=== PATIENT | female | born 1980 | race American Indian/Alaskan Native ===

== ENCOUNTER 2017-04-21 09:49 | Outpatient (CLI) | payer BC ==
[2017-04-21] MEDS ORDERED: LACTATED RINGERS 500 ML IV ONE (09:54)
[2017-04-21 11:12] VITALS: BP 118/60
== END 2017-04-21 12:15 | disposition home or self-care (01) ==
LOC: TRG 09:49
PROVIDERS: ATTEND Obstetrics & Gynecology
DX: O09.522 Supervision of elderly multigravida, second trimester (principal); O47.02 False labor before 37 completed weeks of gestation, second trimester; Z3A.26 26 weeks gestation of pregnancy
CPT/HCPCS: 59025; J7120

== ENCOUNTER 2017-07-11 21:57 | Inpatient (IN) | payer BC ==
[2017-07-11] MEDS ORDERED: LACTATED RINGERS 1,000 ML ONE (22:51)
[2017-07-11] MEDS ORDERED: PITOCin/NS 20 UNIT/1000ML DRIP 20,000 MILLIUNITS/1,000 ML BAG IV ONE (22:51)
[2017-07-11] MEDS ORDERED: ePHEDrine SULFATE IV PRN (23:07)
[2017-07-11] MEDS ORDERED: PHENERGAN PO PRN (23:07)
[2017-07-11] MEDS ORDERED: BRETHINE IVP PRN (23:07)
[2017-07-11] MEDS ORDERED: STADOL IV PRN (23:07)
--- NOTE | 2017-07-11 23:07 | History and Physical Report ---
History of Present Illness Date of examination: 07/11/17 Date of admission: 07/11/17 22:38 History of present illness: Patient presents to labor and delivery complaints of abdominal pain contractions and heavy vaginal bleeding. Initial exam by RN revealed her cervix was 9 cm with a bulging of bag. Patient's care complicated by advanced maternal age history of herpes genitalia. Menstrual History Regularity: regular Menses every: 6 days Duration: 28 LMP: 10/20/2016 LMP reliability: definite LMP character: normal test type: urine test Date: 12/02/2016 BC at conception: none Planned ? no EDC Calculations LMP: 07/27/2017 EDC Confirmation: 07/27/2017 Past History : 2 Term Births: 0 Premature Births: 0 Living Children: 0 Para: 0 Mult. Births: 0 Prev : 0 Aborta: 1 Elect. Ab: 1 Spont. 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 of genital herpes: yes Genetic History ADVANCED MATERNAL AGE Congenital Heart Defect: Mom: no Dad: no [place] Disease: Mom: no Dad: no Thalassemia Mom: no Dad: no Neural Tube Defect Mom: no Dad: no Down's Syndrome Mom: no Dad: no Ortega-Sachs Mom: no Dad: no Sickle Cell Disease/Trait Mom: no Dad: no Hemophilia Mom: no Dad: no Muscular Dystrophy Mom: no Dad: no Cystic Fibrosis Mom: no Dad: no [place] Chorea Mom: no Dad: no Mental Retardation Mom: no Dad: no Fragile X Mom: no Dad: no Other Genetic/Chromosomal Disorder Mom: no Dad: no Child w/other defect Mom: no Dad: no Enviromental Exposures Xray Exposure: no Medication, drug, or alcohol use since LMP: no Chemical/Other Exposure: no Exposure to Cat Liter: no Hx of Parvovirus (Fifth Disease): no Current Allergies: * SEASONAL (Critical) Past History Past Medical History: other (See HPI) Past Surgical History: other (See HPI) ALLERGIST/MD History: chlamydia, herpes, other (See HPI) Family/Genetic History: other (See HPI) Social history: other (See HPI) - Obstetrical History Expected Date of Delivery: 07/27/17 Actual Gestation: 37 Week(s) 6 Day(s) : 2 Para: 0 Hx # Term Pregnancies: 0 Number of Pregnancies: 0 Spontaneous Abortions: 0 Induced : 1 Number of Living Children: 0 Medications and Allergies Allergies Allergy/AdvReac Type Severity Reaction Status Date / Time No Known Allergies Allergy Verified 07/11/17 22:12 Home Medications Medication Instructions Recorded Confirmed Last Taken Type Pnv No.95/Ferrous Fum/Folic AC 1 each PO DAILY 04/21/17 04/21/17 04/21/17 07:30 History [ Caplet] Review of Systems All systems: negative - Vital Signs Vital signs: Vital Signs Temp Resp 97.6 F 18 07/11/17 22:37 07/11/17 22:37 Temp Pulse Resp BP Pulse Ox 97.6 F 60 18 122/58 07/11/17 22:37 07/11/17 22:39 07/11/17 22:37 07/11/17 22:39 - Physical Exam Breasts: Positive: deferred Cardiovascular: Regular rate Lungs: Positive: Normal air movement Abdomen: Positive: normal appearance Genitourinary (Female): Positive: normal external genitalia Vulva: both: normal (blood present no HSV lesions seen) Vagina: Positive: normal moisture. Negative: discharge Uterus: Positive: enlarged Anus/Rectum: Positive: normal perianal skin - Obstetrical FHR: category 1 Uterine Contraction Monitor Mode: Palpation Cervical Dilatation: 10 Cervical Effacement Percentage: 100 station: 0 Uterine Contraction Pattern: Regular Results Result Diagrams: 07/11/17 Unknown All other labs normal. Assessment and Plan - Patient Problems (1) Active labor at term Current Visit: Yes Status: Acute Plan to address problem: Admitted to labor and deliver and follow labor protocol. (2) Herpes genitalia Current Visit: Yes Status: Acute Qualifiers: Herpes simplex infection site: unspecified Qualified Code(s): A60.00 - Herpesviral infection of urogenital system, unspecified Plan to address problem: No active lesions on exam (3) Advanced maternal age (AMA) in Current Visit: Yes Status: Acute
[2017-07-11 23:43] LABS: Hematocrit 37.2 % (30.3-42.9); Hemoglobin 12.6 gm/dl (10.1-14.3); Mean Corpuscular HGB Conc 34 % (30-34); Mean Corpuscular Hemoglobin 33 pg (28-32); Mean Corpuscular Volume 98 fl (79-97); Platelet Count 202 K/mm3 (140-440); Red Blood Count 3.82 M/mm3 (3.65-5.03); Red Cell Distribution Width 13.8 % (13.2-15.2); White Blood Count 16.7 K/mm3 (4.5-11.0)
[2017-07-11] MEDS ORDERED: PITOCin/NS 20 UNIT/1000ML DRIP 20 UNITS/1,000 ML BAG IV SCH (23:45)
[2017-07-11] MEDS ORDERED: LACTATED RINGERS 1,000 ML IV SCH (23:45)
[2017-07-12] MEDS ORDERED: XYLOCAINE 2% INFILTRATI ONE
--- NOTE | 2017-07-12 00:39 | Procedure Note ---
OB Delivery Note - Delivery Date of Delivery: 07/11/17 Surgeon: ANNETTE VALLECILLO Estimated blood loss: other (400cc) - Vaginal Delivery position: OA Intrapartum events: abruption Delivery induction: none Delivery augmentation: rupture of membranes Route of delivery: Delivery placenta: spontaneous, other (blood clots the placenta consistent with abruption) Episiotomy: none Delivery laceration: 2nd degree Delivery repair: vicryl Anesthesia: local - Infant A at 1 minute: 8 at 5 minutes: 9 Gender: Male
[2017-07-12] MEDS ORDERED: BENADRYL PO PRN (01:40)
[2017-07-12] MEDS ORDERED: TUCKS PAD TP PRN (01:40)
[2017-07-12] MEDS ORDERED: NORCO 5/325 PO PRN (01:40)
[2017-07-12] MEDS ORDERED: MILK OF MAGNESIA PO PRN (01:40)
[2017-07-12] MEDS ORDERED: DULCOLAX PR PRN (01:40)
[2017-07-12] MEDS ORDERED: TYLENOL PO PRN (01:40)
[2017-07-12] MEDS ORDERED: SODIUM CHLORIDE FLUSH SYRINGE 10 ML IV PRN (01:40)
[2017-07-12] MEDS ORDERED: PHENERGAN PO PRN (01:40)
[2017-07-12] MEDS: MOTRIN PO SCH ×3 (05:36→13:15)
[2017-07-12] MEDS: PRENATAL VITAMIN PO SCH (12:01)
--- NOTE | 2017-07-12 12:21 | Event Note ---
Date: 07/12/17 stable 12 hours post del,
[2017-07-12 14:09] LABS: Hematocrit 29.7 % (30.3-42.9)
[2017-07-13] MEDS: MOTRIN PO SCH ×2 (00:18→05:44)
[2017-07-13] MEDS ORDERED: BOOSTRIX IM ONE (06:00)
--- NOTE | 2017-07-13 08:25 | Progress Note ---
Assessment and Plan - Patient Problems (1) Vaginal delivery Current Visit: Yes Status: Acute Plan to address problem: -routine pp care -d/c home this pm Subjective - Subjective Date of service: 07/13/17 Principal diagnosis: PPD #1 s/p Interval history: Pt doing well and desires d/c home today if infant cleared for d/c. Pt also is asking for help with breast feeding. to see pt today prior to d/c home. Patient reports: appetite normal, voiding normally, pain well controlled [place]fort: doing well Objective - Vital Signs Latest vital signs: Vital Signs Temp Pulse Resp BP BP Pulse Ox 07/13/17 06:30 16 07/13/17 05:44 16 07/13/17 00:18 18 07/12/17 23:35 97.9 F 85 20 105/52 99 07/12/17 16:12 98.4 F 80 18 116/56 99 07/12/17 12:44 97.7 F 78 18 110/44 07/12/17 09:19 97.9 F 18 104/48 07/12/17 09:13 97.9 F 80 18 104/48 Intake and Output 07/12/17 07/13/17 07/13/17 22:59 06:59 14:59 Intake Total 960 Balance 960 Intake: Oral 720 Intake, Free Water 240 Other: Total, Intake Amount 240 # Voids Void 1 - Exam Lungs: Present: Normal air movement Abdomen: Present: normal appearance, soft. Absent: distention, tenderness, guarding Uterus: Present: normal, firm, fundal height below umbilicus. Absent: tenderness - Labs Labs: Abnormal lab results 07/12/17 Range/Units 13:58 Hgb 10.0 L (10.1-14.3) gm/dl Hct 29.7 L D (30.3-42.9) %
--- NOTE | 2017-07-13 08:27 | Discharge Summary ---
Providers - Providers Date of Admission: 07/11/17 22:38 Date of discharge: 07/13/17 (desires d/c home toay) Attending physician: ANNETTE VALLECILLO 07/12/17 01:40 Consult to Livestock Inspector [CONS] Routine Reason For Exam: assistance with , SNS Primary care physician: ANNETTE VALLECILLO Hospitalization Reason for admission: active labor Delivery: Procedure details: see delivery note Laceration: other (see delivery note) Other procedures: none complications: none [place] baby: male Hospital course: Pt s/p . She has had routine pp care and desires d/c home today. Pt will be d /c home today if remains AFVSS Condition at discharge: Good Disposition: DC-01 TO HOME OR SELFCARE - Discharge Diagnoses (1) Vaginal delivery Status: Acute Plan - Discharge Medications Prescriptions: Lidocain2.5%/Prilocai2.5% [Emla] 1 applic TP ONCE #1 tube - Provider Discharge Summary Additional instructions: [] Smoking cessation referral if applicable(refer to patient education folder for contact #) [] Refer to [facility] Booklet Call your doctor immediately for: * Fever > 100.5 * Heavy vaginal bleeding ( >1 pad per hour) * Severe persistent headache * Shortness of breath * Reddened, hot, painful area to leg or breast * Drainage or odor from incision. * Keep incision clean and dry at all times and follow doctor's instructions regarding bathing/showering - Follow up plan Follow up: ANNETTE VALLECILLO MD [Primary Care Provider] - 7 Days
[2017-07-13] MEDS: PRENATAL VITAMIN PO SCH (08:37)
[2017-07-13] MEDS ORDERED: Fluarix Quad 2017-2018(36 MOS+ IM ONE (09:00)
[2017-07-13 14:47] VITALS: BP 127/71
== END 2017-07-13 14:30 | disposition home or self-care (01) | DRG 774 ==
LOC: TRG 21:57 → LD 22:05 → TRG 22:37 → LD 22:38 → OB 07-12 01:39
PROVIDERS: ADMIT Obstetrics & Gynecology; ATTEND Obstetrics & Gynecology
PROC: 0KQM0ZZ Repair Perineum Muscle, Open Approach (ICD-10-PCS; principal; 2017-07-11)
PROC: 10E0XZZ Delivery of Products of Conception, External Approach (ICD-10-PCS; 2017-07-11)
PROC: 3E0234Z Introduction of Serum, Toxoid and Vaccine into Muscle, Percutaneous Approach (ICD-10-PCS; 2017-07-11)
DX: O45.8X3 Other premature separation of placenta, third trimester (principal); O98.52 Other viral diseases complicating childbirth; B00.9 Herpesviral infection, unspecified; Z3A.37 37 weeks gestation of pregnancy; Z37.0 Single live birth; O70.1 Second degree perineal laceration during delivery; Z23 Encounter for immunization; Z82.49 Family history of ischemic heart disease and other diseases of the circulatory system; Z82.3 Family history of stroke
CPT/HCPCS: 36415; 85014; 85018; 85027; 86850; 86900; 86901; 88307; 90471; 90686; 90715; 99211; G0008; G0463; J2590; J7120

== ENCOUNTER 2022-01-24 15:15 | Inpatient (IN) | payer BC ==
[2022-01-24] MEDS ORDERED: miSOPROStol 200 MCG TAB PR PRN (15:40)
[2022-01-24] MEDS ORDERED: ePHEDrine SULFATE 50 MG/1 ML INJ IV PRN (15:40)
[2022-01-24] MEDS ORDERED: CARBOPROST TROMETHAMINE 250 MCG/1 ML INJ IM PRN (15:40)
[2022-01-24] MEDS ORDERED: BUTORPHANOL 2 MG/1 ML INJ IV PRN (15:40)
[2022-01-24] MEDS ORDERED: PROMETHAZINE 25 MG TAB PO PRN (15:40)
[2022-01-24] MEDS ORDERED: MINERAL OIL 30 ML ORAL LIQD PO PRN (15:40)
[2022-01-24] MEDS ORDERED: OXYTOCIN 10 UNIT/1 ML INJ IM PRN (15:40)
[2022-01-24] MEDS ORDERED: ONDANSETRON 4 MG/2 ML INJ IV PRN (15:40)
[2022-01-24] MEDS ORDERED: fentaNYL 100 MCG/2 ML INJ IV PRN (15:40)
[2022-01-24] MEDS ORDERED: TERBUTALINE 1 MG/1 ML INJ SUB-Q PRN (15:40)
[2022-01-24] MEDS ORDERED: ACETAMINOPHEN 325 MG TAB PO PRN (15:40)
[2022-01-24] MEDS ORDERED: METHYLERGONOVINE MALEATE 0.2 MG/ML VIAL IM PRN (15:40)
[2022-01-24] MEDS ORDERED: LIDOCAINE (2%) 20 MG/1 ML VIAL 20 ML MDV INFILTRATI ONE (15:40)
[2022-01-24] MEDS ORDERED: NALOXONE 0.4 MG/1 ML INJ IV PRN (15:40)
[2022-01-24] MEDS ORDERED: LOPERAMIDE 2 MG CAP PO PRN (15:40)
[2022-01-24] MEDS ORDERED: OXYTOCIN DRIP 30 UNITS/500 ML BAG IV SCH (16:00)
--- NOTE | 2022-01-24 16:01 | History and Physical Report ---
History of Present Illness Date of examination: 01/24/22 Date of admission: 01/24/22 15:17 Chief complaint: I'm here for my induction. History of present illness: Pt is a @ 39.4 wks who presents today for an induction of labor per [facility] recommendation. She has been seeing [facility] d/t AMA. Her has otherwise been uncomplicated. Her last BPP at [facility] on 01/17 was 8/8. Last EFW on 01/02 @ 36.6 wks was 6-5 (46%). Of note: HSV noted on her on her past medical history. Pt denied history of HSV at new missed period visit. Labs reviewed. 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 EDC Confirmation: 01/27/2022 Gestational Age: 39.4 weeks on admission Past History : 4 Term Births: 1 Premature Births: 0 Living Children: 1 Para: 1 Mult. Births: 0 Prev : 0 Prev. attempt? 0 Aborta: 2 Elect. Ab: 1 Spont. Ab: 1 Ectopics: 0 # 1 Delivery date: 2006 Delivery type: EAB # 2 Delivery date: 07/11/2017 Weeks Gestation: 37 Delivery type: Vaginal Hours of labor: 10 Anesthesia type: none Delivery location: [facility] Sex: male weight: 6.19 Name: Ascencion # 3 Delivery date: 08/2019 Delivery type: SAB Comments: Medical therapy Past Medical History: Reviewed history from 04/30/2021 and no changes required: Negative Past Medical History Past Surgical History: Reviewed history from 04/30/2021 and no changes required: negative Family History Summary: Reviewed history Last on 09/02/2019 and no changes required:06/10/2021 Other Family Member - Has Family History of Hypertension - Entered On: 12/02/2016 Other Family Member - Has Family History of CVA or Stroke - Entered On: 12/02/2016 General Comments - FH: Paternal grandmother and Aunts with breast cancer Paternal uncle with pancreatic cancer No Family History of Colon Cancer No Family History of Ovarian Cancer No Family History of DVT/PE on OCP Family Hx of HTN Social History: Reviewed history from 04/30/2021 and no changes required: 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 Drug Use: no Past Medical History Anesthesia Complications: negative Anemia: negative Autoimmune Disorder: negative Bleeding Disorder: negative Blood Transfusions: negative Breast Disease: negative Diabetes: negative Heart Disease: negative Hypertension: negative Hepatitis/Liver Disease: negative Kidney Disease/UTI: negative Neurologic/Epilepsy/Migraines: negative Phlebitis/Varicosities: negative Psychiatric: negative Pulmonary Disease/Asthma: negative Thyroid Disease: negative Hospitalizations: negative Surgery (Non-alumni relations coordinator): negative Abnormal PAP: positive [place] Exposure: negative Infertility: negative Uterine Anomaly: negative Uterine Surgery (not C/S): negative Other Gynecologic Problems: negative Social Hx: Patient is Goverment worker Infection History Hx of STD: gonorrhea HIV Risk Eval: no Hepatitis B Risk Eval: low risk Personal hx. of genital herpes: no Rash, Viral, or Febrile illness since last LMP? no Varicella/Chicken Pox Status: Previous Disease TB Risk: no Infection History Comments: theodore Genetic History ADVANCED MATERNAL AGE Congenital Heart Defect: Mom: no Dad: no [place] Disease: Mom: no Dad: no Thalassemia Mom: no Dad: no Neural Tube Defect Mom: no Dad: no Down's Syndrome Mom: no Dad: no Ortega-Sachs Mom: no Dad: no Sickle Cell Disease/Trait Mom: no Dad: no Hemophilia Mom: no Dad: no Muscular Dystrophy Mom: no Dad: no Cystic Fibrosis Mom: no Dad: no [place] Chorea Mom: no Dad: no Mental Retardation Mom: no Dad: no Fragile X Mom: no Dad: no Other Genetic/Chromosomal Disorder Mom: no Dad: no Child w/other defect Mom: no Dad: no Enviromental Exposures Enviromental Exposures Reviewed Xray Exposure: no Medication, drug, or alcohol use since LMP: no Chemical/Other Exposure: no Exposure to Cat Liter: no Hx of Parvovirus (Fifth Disease): no Occupational Exposure to Children: none Comments: Goverment worker Current Allergies (reviewed today): * SEASONAL (Critical) * CORN (Critical) * WHEAT (Critical) * POTATO (Critical) Past History Past Medical History: no pertinent history Past Surgical History: no surgical history Family/Genetic History: hypertension, stroke, cancer (Breast and Pancreatic) Social history: no significant social history - Obstetrical History Expected Date of Delivery: 01/27/22 Actual Gestation: 39 Week(s) 4 Day(s) : 4 Para: 1 Hx # Term Pregnancies: 1 Number of Pregnancies: 0 Spontaneous Abortions: 1 Induced : 1 Number of Living Children: 1 Medications and Allergies Allergies Allergy/AdvReac Type Severity Reaction Status Date / Time corn Allergy Itching Verified 01/24/22 17:19 potato Allergy Itching Verified 01/24/22 17:19 wheat Allergy Itching Verified 01/24/22 17:19 Home Medications Medication Instructions Recorded Confirmed Last Taken Type Pnv No.95/Ferrous Fum/Folic AC 1 each PO DAILY 04/21/17 07/12/17 01/24/22 06:30 History [ Caplet] Aspirin [Adult Aspirin] 81 mg PO DAILY 01/24/22 01/24/22 01/24/22 06:30 History Review of Systems All systems: negative - Physical Exam Cardiovascular: Regular rate Lungs: Positive: Normal air movement Abdomen: Positive: normal appearance, soft Genitourinary (Female): Positive: normal external genitalia, normal perenium, other (No lesions seen. ) Vulva: both: normal Vagina: Positive: normal moisture Uterus: Positive: enlarged (Normal for 39.4 wk gestation.) Extremities: Positive: normal Deep Tendon Reflex Grade: Normal +2 - Obstetrical FHR: category 1 Uterine Contraction Monitor Mode: External Cervical Dilatation: 0.5 Cervical Effacement Percentage: 50 station: -3 Uterine Contraction Pattern: Irregular Uterine Tone Measurement Phase: Resting Uterine Contraction Intensity: Mild Results Result Diagrams: 01/24/22 16:05 All other labs normal. GBS NEGATIVE HBsAg Screen Negative Negative *1 RPR Non Reactive Non Reactive *2 Rubella Antibodies, IgG 1.27 index Immune >0.99 *3 Non-immune <0.90 Equivocal 0.90 - 0.99 Immune >0.99 ABO Grouping O *4 Rh Factor Positive *5 Please note: Prior records for this patient's ABO / Rh type are not available for additional verification. Antibody Screen Negative Negative *6 Tests: (4) HB Solu + Rflx Frac ([id number]) Hemoglobin (Hgb) Solubility Negative Negative *44 Tests: (5) HIV Ag/Ab with Reflex ([id number]) HIV Screen 4th Generation wRfx Non Reactive Non Reactive *45 Tests: (6) Varicella-Zoster V Ab, IgG ([id number]) ! Varicella Zoster IgG 463 index Immune >165 *46 Negative <135 Equivocal 135 - 165 Positive >165 A positive result generally indicates exposure to the pathogen or administration of specific immunoglobulins, but it is not indication of active infection or stage of disease. Tests: (7) HCV Antibody reflex to WINTER ([id number]) HCV Ab 0.3 s/co ratio 0.0-0.9 *47 Tests: (8) Interpretation: ([id number]) ! Interpretation: SPRCS *48 Negative Not infected with HCV, unless recent infection is suspected or other evidence exists to indicate HCV infection. Assessment and Plan A: 41 y.o. @ 39.4 wks, IOL d/t AMA. HSV 2 +. - Patient Problems (1) Advanced maternal age (AMA) in Current Visit: No Status: Acute (2) with 39 completed weeks gestation Current Visit: Yes Status: Acute Plan to address problem: Admit to labor and delivery. Initiate IV. Drawn admission labs. Pain management: IV pain medication and epidural ordered if and when patient desires. Initiate IOL with Cervidil. Monitor status through EFM. (3) Herpes genitalia Current Visit: No Status: Acute Qualifiers: Herpes simplex infection site: unspecified Qualified Code(s): A60.00 - Herpesviral infection of urogenital system, unspecified Plan to address problem: No lesions seen. Will continue to monitor.
[2022-01-24] MEDS ORDERED: DINOPROSTONE 10 MG VAG SUPP VG ONE (18:00)
[2022-01-24 18:03] LABS: Hematocrit 30.6 % (30.3-42.9); Hemoglobin 10.4 gm/dl (10.1-14.3); Mean Corpuscular HGB Conc 34 % (30-34); Mean Corpuscular Volume 93 fl (79-97); Platelet Count 266 K/mm3 (140-440); Red Blood Count 3.31 M/mm3 (3.65-5.03); Red Cell Distribution Width 15.3 % (13.2-15.2)
--- NOTE | 2022-01-24 18:11 | Event Note ---
Date: 01/24/22 (Cervidil placed. ) Cervidil placed. Cervical exam: FT/50/-2, posterior, soft. Cervix behind head on patient's left side.
[2022-01-25] MEDS: LACTATED RINGERS 1,000 ML IV SCH ×3 (00:25→16:10)
--- NOTE | 2022-01-25 04:31 | Event Note ---
Date: 01/25/22 (Cervidil removed) Received a call from the RN that the patient had a 5 minute deceleration. The Cervidil was at that time removed. Strip reviewed for and a 5 minute deceleration noted at that time. Strip has been category 1 since deceleration. No cervical exam noted. Per RN patient is having some irregular contractions but not feeling them. Will start low dose Pitocin at this time.
[2022-01-25] MEDS ORDERED: diphenhydrAMINE 25 MG CAP PO PRN (04:32)
[2022-01-25] MEDS: OXYTOCIN DRIP 30 UNITS/500 ML BAG IV SCH (08:22)
--- NOTE | 2022-01-25 14:34 | Progress Note ---
Assessment and Plan Pt denies all complaints at this time. SVE performed and pt tolerated well. POC d/w pt. All questions addressed. - Patient Problems (1) with 39 completed weeks gestation Current Visit: Yes Status: Acute (2) Advanced maternal age (AMA) in Current Visit: No Status: Acute Plan to address problem: continue pitocin IOL if no change in SVE- pt may have pitocin turned off, dinner and pm care, then cervidil placement overnight for cervical ripening Subjective - Subjective Date of service: 01/25/22 Principal diagnosis: IOL for AMA, IUP at term Patient reports: movement normal, contractions, no new complaints, no loss of fluid, no vaginal bleeding Objective - Vital Signs Vital Signs: Vital Signs - 12hr 01/25/22 01/25/22 01/25/22 02:34 02:39 02:44 Temperature Pulse Rate 71 71 71 Respiratory Rate Blood Pressure Blood Pressure [Right] O2 Sat by Pulse 99 100 98 Oximetry O2 Sat by Pulse Oximetry [ Bilateral Throughout] 01/25/22 01/25/22 01/25/22 02:49 02:54 02:59 Temperature Pulse Rate 76 71 65 Respiratory Rate Blood Pressure Blood Pressure [Right] O2 Sat by Pulse 99 99 99 Oximetry O2 Sat by Pulse Oximetry [ Bilateral Throughout] 01/25/22 01/25/22 01/25/22 03:04 03:09 03:22 Temperature Pulse Rate 71 68 83 Respiratory Rate Blood Pressure Blood Pressure [Right] O2 Sat by Pulse 100 100 99 Oximetry O2 Sat by Pulse Oximetry [ Bilateral Throughout] 01/25/22 01/25/22 01/25/22 03:27 03:32 03:37 Temperature Pulse Rate 68 78 74 Respiratory Rate Blood Pressure Blood Pressure [Right] O2 Sat by Pulse 99 98 99 Oximetry O2 Sat by Pulse Oximetry [ Bilateral Throughout] 01/25/22 01/25/22 01/25/22 03:42 03:47 03:52 Temperature Pulse Rate 86 75 60 Respiratory Rate Blood Pressure Blood Pressure [Right] O2 Sat by Pulse 99 100 99 Oximetry O2 Sat by Pulse Oximetry [ Bilateral Throughout] 01/25/22 01/25/22 01/25/22 03:57 04:02 04:07 Temperature Pulse Rate 67 76 73 Respiratory Rate Blood Pressure Blood Pressure [Right] O2 Sat by Pulse 99 97 97 Oximetry O2 Sat by Pulse Oximetry [ Bilateral Throughout] 01/25/22 01/25/22 01/25/22 04:12 04:17 04:22 Temperature Pulse Rate 89 71 80 Respiratory Rate Blood Pressure Blood Pressure [Right] O2 Sat by Pulse 98 98 97 Oximetry O2 Sat by Pulse Oximetry [ Bilateral Throughout] 01/25/22 01/25/22 01/25/22 04:27 04:36 04:41 Temperature Pulse Rate 77 74 74 Respiratory Rate Blood Pressure Blood Pressure [Right] O2 Sat by Pulse 98 90 100 Oximetry O2 Sat by Pulse Oximetry [ Bilateral Throughout] 01/25/22 01/25/22 01/25/22 04:46 04:51 04:56 Temperature Pulse Rate 71 63 64 Respiratory Rate Blood Pressure Blood Pressure [Right] O2 Sat by Pulse 99 99 99 Oximetry O2 Sat by Pulse Oximetry [ Bilateral Throughout] 01/25/22 01/25/22 01/25/22 05:01 05:06 05:11 Temperature Pulse Rate 71 69 66 Respiratory Rate Blood Pressure Blood Pressure [Right] O2 Sat by Pulse 98 98 99 Oximetry O2 Sat by Pulse Oximetry [ Bilateral Throughout] 01/25/22 01/25/22 01/25/22 05:16 05:21 05:26 Temperature Pulse Rate 76 66 66 Respiratory Rate Blood Pressure Blood Pressure [Right] O2 Sat by Pulse 96 96 97 Oximetry O2 Sat by Pulse Oximetry [ Bilateral Throughout] 01/25/22 01/25/22 01/25/22 05:31 05:36 05:41 Temperature Pulse Rate 85 67 80 Respiratory Rate Blood Pressure Blood Pressure [Right] O2 Sat by Pulse 96 97 97 Oximetry O2 Sat by Pulse Oximetry [ Bilateral Throughout] 01/25/22 01/25/22 01/25/22 05:46 05:51 05:56 Temperature Pulse Rate 70 85 77 Respiratory Rate Blood Pressure Blood Pressure [Right] O2 Sat by Pulse 96 96 96 Oximetry O2 Sat by Pulse Oximetry [ Bilateral Throughout] 01/25/22 01/25/22 01/25/22 06:01 06:06 06:11 Temperature Pulse Rate 74 76 80 Respiratory Rate Blood Pressure Blood Pressure [Right] O2 Sat by Pulse 97 96 99 Oximetry O2 Sat by Pulse Oximetry [ Bilateral Throughout] 01/25/22 01/25/22 01/25/22 06:16 06:21 06:26 Temperature Pulse Rate 69 75 81 Respiratory Rate Blood Pressure Blood Pressure [Right] O2 Sat by Pulse 99 98 98 Oximetry O2 Sat by Pulse Oximetry [ Bilateral Throughout] 01/25/22 01/25/22 01/25/22 06:31 06:36 06:41 Temperature Pulse Rate 69 76 91 H Respiratory Rate Blood Pressure Blood Pressure [Right] O2 Sat by Pulse 100 97 97 Oximetry O2 Sat by Pulse Oximetry [ Bilateral Throughout] 01/25/22 01/25/22 01/25/22 06:46 06:51 06:56 Temperature Pulse Rate 87 78 85 Respiratory Rate Blood Pressure Blood Pressure [Right] O2 Sat by Pulse 98 99 99 Oximetry O2 Sat by Pulse Oximetry [ Bilateral Throughout] 01/25/22 01/25/22 01/25/22 07:01 07:06 07:11 Temperature Pulse Rate 76 83 83 Respiratory Rate Blood Pressure Blood Pressure [Right] O2 Sat by Pulse 99 99 99 Oximetry O2 Sat by Pulse Oximetry [ Bilateral Throughout] 01/25/22 01/25/22 01/25/22 07:16 07:21 07:26 Temperature Pulse Rate 84 71 83 Respiratory Rate Blood Pressure Blood Pressure [Right] O2 Sat by Pulse 99 100 99 Oximetry O2 Sat by Pulse Oximetry [ Bilateral Throughout] 01/25/22 01/25/22 01/25/22 07:31 07:36 07:42 Temperature Pulse Rate 73 78 58 L Respiratory Rate Blood Pressure Blood Pressure [Right] O2 Sat by Pulse 99 99 100 Oximetry O2 Sat by Pulse Oximetry [ Bilateral Throughout] 01/25/22 01/25/22 01/25/22 07:44 07:45 07:46 Temperature 99.1 F Pulse Rate 70 85 Respiratory 16 Rate Blood Pressure 117/63 Blood Pressure 117/63 [Right] O2 Sat by Pulse 99 Oximetry O2 Sat by Pulse 100 Oximetry [ Bilateral Throughout] 01/25/22 01/25/22 01/25/22 07:47 07:52 07:57 Temperature Pulse Rate 73 62 76 Respiratory Rate Blood Pressure Blood Pressure [Right] O2 Sat by Pulse 100 100 98 Oximetry O2 Sat by Pulse Oximetry [ Bilateral Throughout] 01/25/22 01/25/22 01/25/22 08:02 08:07 08:12 Temperature Pulse Rate 84 78 63 Respiratory Rate Blood Pressure Blood Pressure [Right] O2 Sat by Pulse 98 99 99 Oximetry O2 Sat by Pulse Oximetry [ Bilateral Throughout] 01/25/22 01/25/22 01/25/22 08:17 08:19 08:22 Temperature Pulse Rate 78 69 69 Respiratory Rate Blood Pressure 127/70 Blood Pressure [Right] O2 Sat by Pulse 100 99 Oximetry O2 Sat by Pulse Oximetry [ Bilateral Throughout] 01/25/22 01/25/22 01/25/22 08:27 08:32 08:37 Temperature Pulse Rate 82 77 73 Respiratory Rate Blood Pressure Blood Pressure [Right] O2 Sat by Pulse 99 99 98 Oximetry O2 Sat by Pulse Oximetry [ Bilateral Throughout] 01/25/22 01/25/22 01/25/22 08:42 08:47 08:50 Temperature Pulse Rate 79 79 74 Respiratory Rate Blood Pressure 121/72 Blood Pressure [Right] O2 Sat by Pulse 98 99 Oximetry O2 Sat by Pulse Oximetry [ Bilateral Throughout] 01/25/22 01/25/22 01/25/22 08:52 08:57 09:02 Temperature Pulse Rate 69 76 64 Respiratory Rate Blood Pressure Blood Pressure [Right] O2 Sat by Pulse 100 99 99 Oximetry O2 Sat by Pulse Oximetry [ Bilateral Throughout] 01/25/22 01/25/22 01/25/22 09:07 09:12 09:17 Temperature Pulse Rate 69 74 68 Respiratory Rate Blood Pressure Blood Pressure [Right] O2 Sat by Pulse 100 99 100 Oximetry O2 Sat by Pulse Oximetry [ Bilateral Throughout] 01/25/22 01/25/22 01/25/22 09:19 09:22 09:27 Temperature Pulse Rate 71 73 75 Respiratory Rate Blood Pressure 130/82 Blood Pressure [Right] O2 Sat by Pulse 99 99 Oximetry O2 Sat by Pulse Oximetry [ Bilateral Throughout] 01/25/22 01/25/22 01/25/22 09:32 09:37 09:47 Temperature Pulse Rate 68 76 67 Respiratory Rate Blood Pressure Blood Pressure [Right] O2 Sat by Pulse 100 99 100 Oximetry O2 Sat by Pulse Oximetry [ Bilateral Throughout] 01/25/22 01/25/22 01/25/22 09:48 09:52 09:57 Temperature Pulse Rate 65 87 78 Respiratory Rate Blood Pressure 133/76 Blood Pressure [Right] O2 Sat by Pulse 99 98 Oximetry O2 Sat by Pulse Oximetry [ Bilateral Throughout] 01/25/22 01/25/22 01/25/22 10:02 10:07 10:12 Temperature Pulse Rate 86 69 85 Respiratory Rate Blood Pressure Blood Pressure [Right] O2 Sat by Pulse 99 100 99 Oximetry O2 Sat by Pulse Oximetry [ Bilateral Throughout] 01/25/22 01/25/22 01/25/22 10:17 10:18 10:22 Temperature Pulse Rate 70 63 76 Respiratory Rate Blood Pressure 129/71 Blood Pressure [Right] O2 Sat by Pulse 98 99 Oximetry O2 Sat by Pulse Oximetry [ Bilateral Throughout] 01/25/22 01/25/22 01/25/22 10:27 10:32 10:37 Temperature Pulse Rate 62 67 76 Respiratory Rate Blood Pressure Blood Pressure [Right] O2 Sat by Pulse 99 100 100 Oximetry O2 Sat by Pulse Oximetry [ Bilateral Throughout] 01/25/22 01/25/22 01/25/22 10:42 10:47 10:50 Temperature Pulse Rate 67 74 62 Respiratory Rate Blood Pressure 128/73 Blood Pressure [Right] O2 Sat by Pulse 99 100 Oximetry O2 Sat by Pulse Oximetry [ Bilateral Throughout] 01/25/22 01/25/22 01/25/22 10:52 10:57 11:02 Temperature Pulse Rate 63 66 67 Respiratory Rate Blood Pressure Blood Pressure [Right] O2 Sat by Pulse 99 99 97 Oximetry O2 Sat by Pulse Oximetry [ Bilateral Throughout] 01/25/22 01/25/22 01/25/22 11:22 11:27 11:32 Temperature Pulse Rate 81 65 77 Respiratory Rate Blood Pressure Blood Pressure [Right] O2 Sat by Pulse 76 L 100 100 Oximetry O2 Sat by Pulse Oximetry [ Bilateral Throughout] 01/25/22 01/25/22 01/25/22 11:37 11:42 11:47 Temperature Pulse Rate 80 59 L 78 Respiratory Rate Blood Pressure Blood Pressure [Right] O2 Sat by Pulse 98 99 98 Oximetry O2 Sat by Pulse Oximetry [ Bilateral Throughout] 01/25/22 01/25/22 01/25/22 11:48 11:52 11:57 Temperature Pulse Rate 91 H 66 66 Respiratory Rate Blood Pressure 122/80 Blood Pressure [Right] O2 Sat by Pulse 99 99 Oximetry O2 Sat by Pulse Oximetry [ Bilateral Throughout] 01/25/22 01/25/22 01/25/22 12:02 12:07 12:12 Temperature Pulse Rate 68 60 62 Respiratory Rate Blood Pressure Blood Pressure [Right] O2 Sat by Pulse 98 100 100 Oximetry O2 Sat by Pulse Oximetry [ Bilateral Throughout] 01/25/22 01/25/22 01/25/22 12:17 12:20 12:22 Temperature Pulse Rate 64 60 80 Respiratory Rate Blood Pressure 112/59 Blood Pressure [Right] O2 Sat by Pulse 100 100 Oximetry O2 Sat by Pulse Oximetry [ Bilateral Throughout] 01/25/22 01/25/22 01/25/22 12:27 12:32 12:37 Temperature Pulse Rate 73 57 L 62 Respiratory Rate Blood Pressure Blood Pressure [Right] O2 Sat by Pulse 100 100 100 Oximetry O2 Sat by Pulse Oximetry [ Bilateral Throughout] 01/25/22 01/25/22 01/25/22 12:42 12:47 12:49 Temperature Pulse Rate 70 58 L 61 Respiratory Rate Blood Pressure 128/58 Blood Pressure [Right] O2 Sat by Pulse 100 100 89 Oximetry O2 Sat by Pulse Oximetry [ Bilateral Throughout] 01/25/22 01/25/22 01/25/22 12:52 12:57 13:02 Temperature Pulse Rate 65 69 67 Respiratory Rate Blood Pressure Blood Pressure [Right] O2 Sat by Pulse 100 100 100 Oximetry O2 Sat by Pulse Oximetry [ Bilateral Throughout] 01/25/22 01/25/22 01/25/22 13:07 13:13 13:18 Temperature Pulse Rate 62 60 62 Respiratory Rate Blood Pressure Blood Pressure [Right] O2 Sat by Pulse 100 100 100 Oximetry O2 Sat by Pulse Oximetry [ Bilateral Throughout] 01/25/22 01/25/22 01/25/22 13:23 13:28 13:33 Temperature Pulse Rate 63 58 L 62 Respiratory Rate Blood Pressure Blood Pressure [Right] O2 Sat by Pulse 100 99 100 Oximetry O2 Sat by Pulse Oximetry [ Bilateral Throughout] 01/25/22 01/25/22 01/25/22 13:38 13:43 13:48 Temperature Pulse Rate 70 62 62 Respiratory Rate Blood Pressure Blood Pressure [Right] O2 Sat by Pulse 100 100 100 Oximetry O2 Sat by Pulse Oximetry [ Bilateral Throughout] 01/25/22 01/25/22 01/25/22 13:53 13:58 14:03 Temperature Pulse Rate 77 64 71 Respiratory Rate Blood Pressure Blood Pressure [Right] O2 Sat by Pulse 100 100 99 Oximetry O2 Sat by Pulse Oximetry [ Bilateral Throughout] 01/25/22 01/25/22 01/25/22 14:08 14:13 14:18 Temperature Pulse Rate 65 58 L 67 Respiratory Rate Blood Pressure Blood Pressure [Right] O2 Sat by Pulse 100 100 100 Oximetry O2 Sat by Pulse Oximetry [ Bilateral Throughout] 01/25/22 01/25/22 14:23 14:28 Temperature Pulse Rate 67 62 Respiratory Rate Blood Pressure Blood Pressure [Right] O2 Sat by Pulse 100 100 Oximetry O2 Sat by Pulse Oximetry [ Bilateral Throughout] - Exam Breasts: deferred Cardiovascular: Regular rate Lungs: Normal air movement Abdomen: Present: normal appearance, soft. Absent: distention, tenderness, guarding Vulva: both: normal Uterus: Present: normal, other (gravid) FHR: auscultation normal, category 1 Uterine Contraction Monitor Mode: External Cervical Dilatation: 1 Cervical Effacement Percentage: 50 station: -3 Uterine Contraction Pattern: Regular Uterine Tone Measurement Phase: Resting Extremities: normal - Labs Labs: Abnormal Labs 01/24/22 16:05 RBC 3.31 L RDW 15.3 H Laboratory Results - last 24 hr 01/24/22 01/24/22 01/24/22 16:05 16:05 16:05 WBC 8.1 RBC 3.31 L Hgb 10.4 Hct 30.6 MCV 93 MCH 31 MCHC 34 RDW 15.3 H Plt Count 266 Syphilis IgG/IgM Ab Nonreactive SARS-CoV-2 (PCR) Blood Type O POSITIVE Antibody Screen Negative 01/25/22 08:22 WBC RBC Hgb Hct MCV MCH MCHC RDW Plt Count Syphilis IgG/IgM Ab SARS-CoV-2 (PCR) Negative Blood Type Antibody Screen
[2022-01-25] MEDS ORDERED: DINOPROSTONE 10 MG VAG SUPP VG SCH (22:00)
--- NOTE | 2022-01-26 13:27 | Event Note ---
Date: 01/26/22 Informed by JLUIS that patient desires to sign out AMA (against medical advice). Spoke with patient who states she is tired and feels like her body is being forced to do something it is not ready to do. Discussed induction of labor is recommended at 39w0d for patients who are at advanced maternal age, beginning at age 35. Reviewed this recommendation is due to increased risk of stillbirth as we age. Notes she had a baby at 37 years old and was not induced. Reviewed due to her being age 41, the risk of stillbirth remains and IOL is recommended. Discussed FHT tracing currently is ok, but she has had moments of decreased variability and decelerations (Cat 2). Recommend staying in hospital as here we can monitor baby and intervene as necessary. Stressed this cannot be done at home and if something happened it may be too late when she presents to hospital. again stressed the risk of IUFD and recommendation to remain in-house. Patient voiced understanding and all questions answered
[2022-01-26] MEDS: OXYTOCIN DRIP 30 UNITS/500 ML BAG IV SCH (13:34)
[2022-01-26] MEDS: LACTATED RINGERS 1,000 ML IV SCH (13:35)
--- NOTE | 2022-01-26 13:49 | Progress Note ---
Assessment and Plan Pt teary and reports frustration with IOL process. SVE grossly unchanged s/p cervidil. Dr. Menjivar made aware and T's cat 2 strip reviewed with physician. Orders received for continued IOL. T's cat 2 discussed with pt. Serial IOL options with risks and benefits d/w pt. Discussed option to take a break from induction process so pt may eat. Option also discussed for elective delivery. Pt refuses all options and states she wants to go home. High risk of stillbirth discussed and pt advised not to leave against medical advice. Need for IOL d/t AMA risks discussed in length. Questions encouraged and addressed. Dr. Menjivar notified and included in discussion with pt. Total time spent with the patient 30 minutes. Pt verbalizes understanding and agrees to low dose Pitocin at this time. Pt refuses all other IOL options. Pt verbalizes understanding of all risks and reports she may still sign out AMA. - Patient Problems (1) with 39 completed weeks gestation Current Visit: Yes Status: Acute (2) Advanced maternal age (AMA) in Current Visit: No Status: Acute Plan to address problem: continuous monitoring, notify provider with any ssx of distress Subjective - Subjective Date of service: 01/26/22 Principal diagnosis: IOL for AMA, IUP at term Patient reports: movement normal, no new complaints, no loss of fluid, no vaginal bleeding, no contractions Objective - Vital Signs Vital Signs: Vital Signs - 12hr 01/26/22 01/26/22 01/26/22 01:33 01:38 01:43 Temperature Pulse Rate 90 68 84 Blood Pressure Blood Pressure [Left] O2 Sat by Pulse 98 99 99 Oximetry O2 Sat by Pulse Oximetry [ Bilateral Throughout] 01/26/22 01/26/22 01/26/22 01:48 01:53 01:58 Temperature Pulse Rate 70 90 68 Blood Pressure Blood Pressure [Left] O2 Sat by Pulse 99 98 99 Oximetry O2 Sat by Pulse Oximetry [ Bilateral Throughout] 01/26/22 01/26/22 01/26/22 02:03 02:08 02:13 Temperature Pulse Rate 87 72 75 Blood Pressure Blood Pressure [Left] O2 Sat by Pulse 98 97 98 Oximetry O2 Sat by Pulse Oximetry [ Bilateral Throughout] 01/26/22 01/26/22 01/26/22 02:17 02:18 02:23 Temperature Pulse Rate 85 80 96 H Blood Pressure 89/49 Blood Pressure [Left] O2 Sat by Pulse 98 100 Oximetry O2 Sat by Pulse Oximetry [ Bilateral Throughout] 01/26/22 01/26/22 01/26/22 02:28 02:33 02:38 Temperature Pulse Rate 72 76 81 Blood Pressure Blood Pressure [Left] O2 Sat by Pulse 98 98 98 Oximetry O2 Sat by Pulse Oximetry [ Bilateral Throughout] 01/26/22 01/26/22 01/26/22 02:43 02:48 02:53 Temperature Pulse Rate 76 74 79 Blood Pressure Blood Pressure [Left] O2 Sat by Pulse 98 98 98 Oximetry O2 Sat by Pulse Oximetry [ Bilateral Throughout] 01/26/22 01/26/22 01/26/22 02:58 03:03 03:08 Temperature Pulse Rate 77 75 69 Blood Pressure Blood Pressure [Left] O2 Sat by Pulse 98 99 99 Oximetry O2 Sat by Pulse Oximetry [ Bilateral Throughout] 01/26/22 01/26/22 01/26/22 03:13 03:18 03:23 Temperature Pulse Rate 75 78 76 Blood Pressure Blood Pressure [Left] O2 Sat by Pulse 99 100 98 Oximetry O2 Sat by Pulse Oximetry [ Bilateral Throughout] 01/26/22 01/26/22 01/26/22 03:28 03:33 03:38 Temperature Pulse Rate 71 81 83 Blood Pressure Blood Pressure [Left] O2 Sat by Pulse 98 98 99 Oximetry O2 Sat by Pulse Oximetry [ Bilateral Throughout] 01/26/22 01/26/22 01/26/22 03:43 03:48 03:53 Temperature Pulse Rate 76 80 86 Blood Pressure Blood Pressure [Left] O2 Sat by Pulse 98 99 99 Oximetry O2 Sat by Pulse Oximetry [ Bilateral Throughout] 01/26/22 01/26/22 01/26/22 03:58 04:13 04:17 Temperature Pulse Rate 78 80 Blood Pressure 112/57 Blood Pressure [Left] O2 Sat by Pulse 99 100 Oximetry O2 Sat by Pulse Oximetry [ Bilateral Throughout] 01/26/22 01/26/22 01/26/22 04:18 04:23 04:28 Temperature Pulse Rate 83 69 74 Blood Pressure Blood Pressure [Left] O2 Sat by Pulse 98 98 99 Oximetry O2 Sat by Pulse Oximetry [ Bilateral Throughout] 01/26/22 01/26/22 01/26/22 04:33 04:38 04:43 Temperature Pulse Rate 65 78 65 Blood Pressure Blood Pressure [Left] O2 Sat by Pulse 99 100 98 Oximetry O2 Sat by Pulse Oximetry [ Bilateral Throughout] 01/26/22 01/26/22 01/26/22 04:48 04:53 04:58 Temperature Pulse Rate 66 67 64 Blood Pressure Blood Pressure [Left] O2 Sat by Pulse 100 100 99 Oximetry O2 Sat by Pulse Oximetry [ Bilateral Throughout] 01/26/22 01/26/22 01/26/22 05:03 05:08 05:13 Temperature Pulse Rate 74 73 71 Blood Pressure Blood Pressure [Left] O2 Sat by Pulse 99 99 98 Oximetry O2 Sat by Pulse Oximetry [ Bilateral Throughout] 01/26/22 01/26/22 01/26/22 05:17 05:18 05:23 Temperature Pulse Rate 73 68 72 Blood Pressure 113/56 Blood Pressure [Left] O2 Sat by Pulse 98 98 Oximetry O2 Sat by Pulse Oximetry [ Bilateral Throughout] 01/26/22 01/26/22 01/26/22 05:28 05:33 05:38 Temperature Pulse Rate 78 67 75 Blood Pressure Blood Pressure [Left] O2 Sat by Pulse 98 98 97 Oximetry O2 Sat by Pulse Oximetry [ Bilateral Throughout] 01/26/22 01/26/22 01/26/22 05:43 05:48 05:53 Temperature Pulse Rate 78 67 70 Blood Pressure Blood Pressure [Left] O2 Sat by Pulse 96 97 97 Oximetry O2 Sat by Pulse Oximetry [ Bilateral Throughout] 01/26/22 01/26/22 01/26/22 05:58 06:03 06:08 Temperature Pulse Rate 81 77 73 Blood Pressure Blood Pressure [Left] O2 Sat by Pulse 96 97 97 Oximetry O2 Sat by Pulse Oximetry [ Bilateral Throughout] 01/26/22 01/26/22 01/26/22 06:13 06:18 06:23 Temperature Pulse Rate 75 68 70 Blood Pressure 110/55 Blood Pressure [Left] O2 Sat by Pulse 96 97 97 Oximetry O2 Sat by Pulse Oximetry [ Bilateral Throughout] 01/26/22 01/26/22 01/26/22 06:28 06:33 06:38 Temperature Pulse Rate 65 75 68 Blood Pressure Blood Pressure [Left] O2 Sat by Pulse 95 97 97 Oximetry O2 Sat by Pulse Oximetry [ Bilateral Throughout] 01/26/22 01/26/22 01/26/22 06:43 06:48 06:53 Temperature Pulse Rate 67 66 72 Blood Pressure Blood Pressure [Left] O2 Sat by Pulse 97 99 98 Oximetry O2 Sat by Pulse Oximetry [ Bilateral Throughout] 01/26/22 01/26/22 01/26/22 06:58 07:03 07:08 Temperature Pulse Rate 76 71 69 Blood Pressure Blood Pressure [Left] O2 Sat by Pulse 97 99 99 Oximetry O2 Sat by Pulse Oximetry [ Bilateral Throughout] 01/26/22 01/26/22 01/26/22 07:13 07:17 07:18 Temperature Pulse Rate 66 63 67 Blood Pressure 101/52 Blood Pressure [Left] O2 Sat by Pulse 98 98 Oximetry O2 Sat by Pulse Oximetry [ Bilateral Throughout] 01/26/22 01/26/22 01/26/22 07:23 07:30 07:35 Temperature Pulse Rate 66 71 65 Blood Pressure Blood Pressure [Left] O2 Sat by Pulse 99 100 98 Oximetry O2 Sat by Pulse 100 Oximetry [ Bilateral Throughout] 01/26/22 01/26/22 01/26/22 07:37 07:40 07:45 Temperature 98.3 F Pulse Rate 61 62 81 Blood Pressure 103/56 Blood Pressure 103/56 [Left] O2 Sat by Pulse 100 100 99 Oximetry O2 Sat by Pulse Oximetry [ Bilateral Throughout] 01/26/22 01/26/22 01/26/22 07:50 07:55 08:00 Temperature Pulse Rate 63 64 61 Blood Pressure Blood Pressure [Left] O2 Sat by Pulse 99 99 100 Oximetry O2 Sat by Pulse Oximetry [ Bilateral Throughout] 01/26/22 01/26/22 01/26/22 08:05 08:10 08:15 Temperature Pulse Rate 57 L 59 L 70 Blood Pressure Blood Pressure [Left] O2 Sat by Pulse 100 100 100 Oximetry O2 Sat by Pulse Oximetry [ Bilateral Throughout] 01/26/22 01/26/22 01/26/22 08:17 08:20 08:25 Temperature Pulse Rate 77 62 54 L Blood Pressure 110/70 Blood Pressure [Left] O2 Sat by Pulse 100 100 Oximetry O2 Sat by Pulse Oximetry [ Bilateral Throughout] 01/26/22 01/26/22 01/26/22 08:30 08:35 08:40 Temperature Pulse Rate 61 62 54 L Blood Pressure Blood Pressure [Left] O2 Sat by Pulse 100 100 100 Oximetry O2 Sat by Pulse Oximetry [ Bilateral Throughout] 01/26/22 01/26/22 01/26/22 08:45 08:50 08:55 Temperature Pulse Rate 63 71 73 Blood Pressure Blood Pressure [Left] O2 Sat by Pulse 100 100 100 Oximetry O2 Sat by Pulse Oximetry [ Bilateral Throughout] 01/26/22 01/26/22 01/26/22 09:00 09:05 09:10 Temperature Pulse Rate 61 62 72 Blood Pressure Blood Pressure [Left] O2 Sat by Pulse 100 100 100 Oximetry O2 Sat by Pulse Oximetry [ Bilateral Throughout] 01/26/22 01/26/22 01/26/22 09:15 09:17 09:20 Temperature Pulse Rate 60 76 62 Blood Pressure 65/37 Blood Pressure [Left] O2 Sat by Pulse 100 100 Oximetry O2 Sat by Pulse Oximetry [ Bilateral Throughout] 01/26/22 01/26/22 01/26/22 09:42 09:47 09:52 Temperature Pulse Rate 55 L 55 L 75 Blood Pressure Blood Pressure [Left] O2 Sat by Pulse 98 100 99 Oximetry O2 Sat by Pulse Oximetry [ Bilateral Throughout] 01/26/22 01/26/22 01/26/22 09:57 10:02 10:07 Temperature Pulse Rate 60 67 67 Blood Pressure Blood Pressure [Left] O2 Sat by Pulse 98 98 99 Oximetry O2 Sat by Pulse Oximetry [ Bilateral Throughout] 01/26/22 01/26/22 01/26/22 10:08 10:12 10:17 Temperature Pulse Rate 57 L 63 70 Blood Pressure 106/58 Blood Pressure [Left] O2 Sat by Pulse 100 98 Oximetry O2 Sat by Pulse Oximetry [ Bilateral Throughout] 01/26/22 01/26/22 01/26/22 10:18 10:22 10:27 Temperature Pulse Rate 74 71 73 Blood Pressure 114/63 Blood Pressure [Left] O2 Sat by Pulse 98 99 Oximetry O2 Sat by Pulse Oximetry [ Bilateral Throughout] 01/26/22 01/26/22 01/26/22 10:32 10:37 10:42 Temperature Pulse Rate 78 76 61 Blood Pressure Blood Pressure [Left] O2 Sat by Pulse 98 99 98 Oximetry O2 Sat by Pulse Oximetry [ Bilateral Throughout] 01/26/22 01/26/22 01/26/22 10:47 10:52 10:57 Temperature Pulse Rate 70 65 65 Blood Pressure Blood Pressure [Left] O2 Sat by Pulse 98 99 100 Oximetry O2 Sat by Pulse Oximetry [ Bilateral Throughout] 01/26/22 01/26/22 01/26/22 11:02 11:09 11:14 Temperature Pulse Rate 67 64 84 Blood Pressure Blood Pressure [Left] O2 Sat by Pulse 100 96 100 Oximetry O2 Sat by Pulse Oximetry [ Bilateral Throughout] 01/26/22 01/26/22 01/26/22 11:17 11:19 11:27 Temperature Pulse Rate 74 56 L 92 H Blood Pressure 134/63 Blood Pressure [Left] O2 Sat by Pulse 99 94 Oximetry O2 Sat by Pulse Oximetry [ Bilateral Throughout] 01/26/22 01/26/22 01/26/22 11:32 11:37 11:42 Temperature Pulse Rate 73 71 71 Blood Pressure Blood Pressure [Left] O2 Sat by Pulse 97 98 98 Oximetry O2 Sat by Pulse Oximetry [ Bilateral Throughout] 01/26/22 01/26/22 01/26/22 11:47 11:52 11:57 Temperature Pulse Rate 68 76 71 Blood Pressure Blood Pressure [Left] O2 Sat by Pulse 99 100 99 Oximetry O2 Sat by Pulse Oximetry [ Bilateral Throughout] 01/26/22 01/26/22 01/26/22 12:02 12:07 12:12 Temperature Pulse Rate 73 79 68 Blood Pressure Blood Pressure [Left] O2 Sat by Pulse 100 99 100 Oximetry O2 Sat by Pulse Oximetry [ Bilateral Throughout] 01/26/22 01/26/22 01/26/22 12:18 12:23 12:25 Temperature Pulse Rate 63 69 74 Blood Pressure 122/69 Blood Pressure [Left] O2 Sat by Pulse 99 99 91 Oximetry O2 Sat by Pulse Oximetry [ Bilateral Throughout] 01/26/22 01/26/22 01/26/22 12:28 12:33 12:38 Temperature Pulse Rate 73 69 65 Blood Pressure Blood Pressure [Left] O2 Sat by Pulse 99 99 97 Oximetry O2 Sat by Pulse Oximetry [ Bilateral Throughout] 01/26/22 01/26/22 12:43 12:48 Temperature Pulse Rate 75 70 Blood Pressure Blood Pressure [Left] O2 Sat by Pulse 100 100 Oximetry O2 Sat by Pulse Oximetry [ Bilateral Throughout] - Exam Breasts: deferred Cardiovascular: Regular rate Lungs: Normal air movement Abdomen: Present: normal appearance, soft. Absent: distention, tenderness, guar ding Vulva: both: normal Uterus: Present: normal, other (gravid at term) FHR: category 2 Uterine Contraction Monitor Mode: External Cervical Dilatation: 1.5 Cervical Effacement Percentage: 50 station: -4 Uterine Contraction Pattern: Irregular Uterine Tone Measurement Phase: Resting Extremities: normal - Labs Labs: Abnormal Labs 01/24/22 16:05 RBC 3.31 L RDW 15.3 H
[2022-01-27] MEDS: LACTATED RINGERS 1,000 ML IV SCH (00:03)
[2022-01-27] MEDS ORDERED: LIDOCAINE (2%) 20 MG/1 ML VIAL 20 ML MDV INFILTRATI ONE (00:38)
--- NOTE | 2022-01-27 01:38 | Procedure Note ---
OB Delivery Note - Delivery Date of Delivery: 01/27/22 Product Support Engineer: XIMENA CLAYTON Estimated blood loss: <100cc - Vaginal Delivery presentation: vertex Delivery position: OA Intrapartum events: mult.variable deceleratio Delivery induction: cervidil Delivery augmentation: pitocin Delivery monitor: external FHT, external uterine Route of delivery: Delivery placenta: spontaneous Delivery cord: 3 umbilical vessels Episiotomy: none Delivery laceration: none Anesthesia: none Delivery comments: Viable male born over intact perineum; bulb suctioned, placed on mother's abdomen crying and vigorous. 3VC clamped x2 after 2 mins delayed cord clamping, cut by FOB. Placenta delivered spontaneously and intact, sent to pathology for AMA. IV infiltrated. Pitocin IM d/w pt and administered by Primary RN. Perineum explored, hemostatic. No lacerations noted to repair. FF below U with scant lochia. Mother and baby left LDR stable. Dr. Menjivar made aware. - A at 1 minute: 8 at 5 minutes: 9 Infant Gender: Male (3000g)
[2022-01-27] MEDS ORDERED: WITCH HAZEL/ GLYCERIN PAD TP PRN (03:22)
[2022-01-27] MEDS ORDERED: HYDROcodone/ACETAMINOPHEN 5-325 MG TAB PO PRN (03:22)
[2022-01-27] MEDS ORDERED: ONDANSETRON 4 MG/2 ML INJ IV PRN (03:22)
[2022-01-27] MEDS ORDERED: BENZOCAINE/MENTHOL 20/0.5% TOP SPRAY 56 GM TP PRN (03:22)
[2022-01-27] MEDS ORDERED: PROMETHAZINE 25 MG RECT SUPP PR PRN (03:22)
[2022-01-27] MEDS ORDERED: ACETAMINOPHEN 325 MG TAB PO PRN (03:22)
[2022-01-27] MEDS ORDERED: PROMETHAZINE 25 MG TAB PO PRN (03:22)
[2022-01-27] MEDS ORDERED: LANOLIN/ZINC/DIMETHICONE (LANSINOH) 7 GM TP PRN (03:22)
[2022-01-27] MEDS: IBUPROFEN 800 MG TAB PO SCH ×4 (03:22→18:12)
[2022-01-27] MEDS ORDERED: HYDROCORTISONE 25 MG RECTAL SUPP PR PRN (03:22)
[2022-01-27] MEDS ORDERED: diphenhydrAMINE 25 MG CAP PO PRN (03:22)
[2022-01-27] MEDS ORDERED: MAGNESIUM HYDROXIDE (MOM) ORAL LIQD UDC PO PRN (03:22)
--- NOTE | 2022-01-27 07:35 | Progress Note ---
Assessment and Plan A: 41 y.o. s/p , ~ 6 hours . - Patient Problems (1) Vaginal delivery Current Visit: No Status: Acute Plan to address problem: Continue with care. Anticipate discharge home on 01/28. Subjective - Subjective Date of service: 01/27/22 Principal diagnosis: s/p Interval history: Pt doing well. Has no needs at this time. Discussed plan of care. Discharge home on 01/28 if progress normal. Patient reports: appetite normal, voiding normally, pain well controlled, ambulating normally : doing well Objective - Vital Signs Latest vital signs: Vital Signs Temp Pulse Resp BP BP Pulse Ox Pulse Ox 01/27/22 07:01 18 01/27/22 06:45 20 01/27/22 03:22 18 01/27/22 03:05 98.7 F 61 18 121/45 99 100 01/27/22 02:32 79 94 01/27/22 02:31 79 97 01/27/22 02:30 78 139/75 01/27/22 02:26 83 97 01/27/22 02:22 65 92 01/27/22 02:21 65 100 01/27/22 02:16 54 L 100 01/27/22 02:15 50 L 133/62 01/27/22 02:11 58 L 100 01/27/22 02:06 65 98 01/27/22 02:01 71 100 01/27/22 01:56 75 96 01/27/22 01:54 70 92 01/27/22 01:51 59 L 92 01/27/22 01:48 76 92 01/27/22 01:46 63 100 01/27/22 01:45 68 118/58 01/27/22 01:41 71 95 01/27/22 01:40 78 93 01/27/22 01:36 78 98 01/27/22 01:35 85 91 01/27/22 01:31 72 92 01/27/22 01:30 98.4 F 01/27/22 01:29 81 91 01/27/22 01:26 61 99 01/27/22 01:21 77 92 01/27/22 01:20 68 138/58 01/27/22 01:18 78 97 01/27/22 01:13 55 L 88 01/27/22 01:09 61 89 01/27/22 01:08 56 L 100 01/27/22 01:03 86 97 01/27/22 00:58 71 100 01/27/22 00:53 80 97 01/27/22 00:49 68 90 01/27/22 00:48 60 100 01/27/22 00:43 56 L 100 01/27/22 00:38 74 89 01/27/22 00:36 78 92 01/27/22 00:33 74 97 01/27/22 00:28 58 L 100 01/27/22 00:26 74 89 01/27/22 00:23 59 L 99 01/27/22 00:19 75 87 01/27/22 00:18 70 99 01/27/22 00:13 67 81 L 01/27/22 00:08 57 L 89 01/27/22 00:02 64 80 L 01/27/22 00:00 98.2 F 01/26/22 23:58 68 94 01/26/22 23:57 63 98 01/26/22 23:52 53 L 79 L 01/26/22 23:51 59 L 94 01/26/22 23:47 58 L 93 01/26/22 23:46 59 L 94 01/26/22 23:42 58 L 96 01/26/22 23:38 63 94 01/26/22 23:37 67 92 01/26/22 23:33 63 20 93 01/26/22 23:32 64 97 01/26/22 23:27 60 94 01/26/22 23:15 64 98 01/26/22 23:10 70 100 01/26/22 23:05 54 L 100 01/26/22 23:01 78 86 01/26/22 23:00 63 90 01/26/22 22:55 75 90 01/26/22 22:38 72 91 01/26/22 22:37 65 99 01/26/22 22:32 76 95 01/26/22 22:27 56 L 96 01/26/22 22:21 69 97 01/26/22 22:18 57 L 113/57 01/26/22 22:16 75 98 01/26/22 22:11 64 100 01/26/22 22:06 63 100 01/26/22 22:01 79 96 06/12/22 21:56 56 L 97 01/26/22 21:51 69 97 01/26/22 21:47 62 92 01/26/22 21:46 66 98 01/26/22 21:38 84 95 01/26/22 21:37 70 85 01/26/22 21:33 65 97 01/26/22 21:28 82 95 01/26/22 21:23 79 89 01/26/22 21:18 59 L 97 01/26/22 21:17 66 124/58 01/26/22 21:16 73 86 01/26/22 21:13 83 98 01/26/22 21:08 68 95 01/26/22 21:03 70 95 01/26/22 21:01 81 85 01/26/22 20:58 70 96 01/26/22 20:54 95 H 84 01/26/22 20:53 73 95 01/26/22 20:48 75 89 01/26/22 20:31 79 96 01/26/22 20:29 84 94 01/26/22 20:26 75 96 01/26/22 20:21 98 H 85 01/26/22 20:16 73 97 01/26/22 20:11 81 98 01/26/22 20:10 82 93 01/26/22 20:06 77 97 01/26/22 20:01 70 98 01/26/22 19:56 83 91 01/26/22 19:51 92 H 100 01/26/22 19:46 86 87 01/26/22 19:37 82 87 01/26/22 19:36 87 98 01/26/22 19:31 84 98 01/26/22 19:30 91 H 91 01/26/22 19:26 82 98 01/26/22 19:24 89 90 01/26/22 19:21 76 99 01/26/22 19:19 76 92 01/26/22 19:16 64 98 01/26/22 19:15 97.2 F L 88 115/57 95 01/26/22 19:12 88 86 01/26/22 19:11 85 98 01/26/22 19:06 90 98 01/26/22 19:05 87 93 01/26/22 19:01 88 85 01/26/22 18:57 88 91 01/26/22 18:56 79 96 01/26/22 18:51 81 97 01/26/22 18:43 58 L 98 01/26/22 18:38 64 99 01/26/22 18:33 60 99 01/26/22 18:28 78 85 01/26/22 18:19 87 59 L 01/26/22 18:14 63 96 01/26/22 18:12 87 94 01/26/22 18:09 70 97 01/26/22 18:07 85 93 01/26/22 18:04 70 99 01/26/22 18:02 74 89 01/26/22 17:59 64 98 01/26/22 17:56 74 93 01/26/22 17:54 73 100 01/26/22 17:49 62 98 01/26/22 17:44 68 96 01/26/22 17:40 74 91 01/26/22 17:39 71 100 01/26/22 17:35 62 94 01/26/22 17:34 69 100 01/26/22 17:30 86 94 01/26/22 17:29 97 H 98 01/26/22 17:24 61 89 01/26/22 17:19 62 90 01/26/22 17:09 98 H 92 01/26/22 17:04 73 98 01/26/22 16:59 64 99 01/26/22 16:54 62 100 01/26/22 16:52 74 94 01/26/22 16:49 63 98 01/26/22 16:47 68 94 01/26/22 16:44 56 L 99 01/26/22 16:39 63 98 01/26/22 16:34 60 98 01/26/22 16:29 58 L 98 01/26/22 16:24 58 L 99 01/26/22 16:20 57 L 136/64 01/26/22 16:19 65 97 01/26/22 16:14 59 L 97 01/26/22 16:09 53 L 98 01/26/22 16:04 66 97 01/26/22 15:59 62 99 01/26/22 15:54 69 100 01/26/22 15:49 56 L 100 01/26/22 15:43 78 98 01/26/22 15:39 95 H 92 01/26/22 15:38 95 H 96 01/26/22 15:34 77 92 01/26/22 15:33 83 97 01/26/22 15:28 70 96 01/26/22 15:23 86 97 01/26/22 15:20 84 92 01/26/22 15:18 75 96 01/26/22 15:13 77 95 01/26/22 15:08 77 97 01/26/22 15:04 81 94 01/26/22 15:03 83 97 01/26/22 14:58 79 92 01/26/22 14:52 95 H 97 01/26/22 14:47 76 97 01/26/22 14:42 74 98 01/26/22 14:37 76 97 01/26/22 14:32 80 97 01/26/22 14:27 78 97 01/26/22 14:22 67 97 01/26/22 14:17 79 152/69 97 01/26/22 14:12 62 98 01/26/22 14:07 82 97 01/26/22 14:02 62 99 01/26/22 13:57 83 99 01/26/22 13:52 56 L 99 01/26/22 13:47 57 L 100 01/26/22 12:48 70 100 01/26/22 12:43 75 100 01/26/22 12:38 65 97 01/26/22 12:33 69 99 01/26/22 12:28 73 99 01/26/22 12:25 74 91 01/26/22 12:23 69 99 01/26/22 12:18 63 122/69 99 01/26/22 12:12 68 100 01/26/22 12:07 79 99 01/26/22 12:02 73 100 01/26/22 11:57 71 99 01/26/22 11:52 76 100 01/26/22 11:47 68 99 01/26/22 11:42 71 98 01/26/22 11:37 71 98 01/26/22 11:32 73 97 01/26/22 11:27 92 H 94 01/26/22 11:19 56 L 99 01/26/22 11:17 74 134/63 01/26/22 11:14 84 100 01/26/22 11:09 64 96 01/26/22 11:02 67 100 01/26/22 10:57 65 100 01/26/22 10:52 65 99 01/26/22 10:47 70 98 01/26/22 10:42 61 98 01/26/22 10:37 76 99 01/26/22 10:32 78 98 01/26/22 10:27 73 99 01/26/22 10:22 71 98 01/26/22 10:18 74 114/63 01/26/22 10:17 70 98 01/26/22 10:12 63 100 01/26/22 10:08 57 L 106/58 01/26/22 10:07 67 99 01/26/22 10:02 67 98 01/26/22 09:57 60 98 01/26/22 09:52 75 99 01/26/22 09:47 55 L 100 01/26/22 09:42 55 L 98 01/26/22 09:20 62 100 01/26/22 09:17 76 65/37 01/26/22 09:15 60 100 01/26/22 09:10 72 100 01/26/22 09:05 62 100 01/26/22 09:00 61 100 01/26/22 08:55 73 100 01/26/22 08:50 71 100 01/26/22 08:45 63 100 01/26/22 08:40 54 L 100 01/26/22 08:35 62 100 01/26/22 08:30 61 100 01/26/22 08:25 54 L 100 01/26/22 08:20 62 100 01/26/22 08:17 77 110/70 01/26/22 08:15 70 100 01/26/22 08:10 59 L 100 01/26/22 08:05 57 L 100 01/26/22 08:00 61 100 01/26/22 07:55 64 99 01/26/22 07:50 63 99 01/26/22 07:45 81 99 01/26/22 07:40 62 100 01/26/22 07:37 98.3 F 61 103/56 103/56 100 01/26/22 07:35 65 98 100 Intake and Output 01/26/22 01/27/22 01/27/22 22:59 06:59 14:59 Intake Total 1002.267 595.183 Output Total 1750 Balance 1002.267 -1154.817 Intake: IV 1002.267 235.183 Lactated Ringers 1,000 ml 1000 235.183 @ 125 mls/hr IV DIRECT MICKEY Rx#:[id number] PITOCin/NS 30 UNIT/500ML 2.267 30 units In 500 ml @ 1 mls/hr IV TITR MICKEY Rx#: [id number] Oral 240 Intake, Free Water 120 Output: Urine 1750 Void 1750 Other: Total, Intake Amount 240 Total, Output Amount 600 # Voids Void 1 Estimated Blood Loss 50 - Exam Breasts: Present: deferred Cardiovascular: Present: Regular rate Lungs: Present: Normal air movement Abdomen: Present: normal appearance, soft Vulva: both: normal Uterus: Present: normal, firm, other (Light lochia noted. ) Extremities: Present: normal
[2022-01-27] MEDS: DOCUSATE SODIUM 100 MG CAP PO SCH ×2 (10:09→22:00)
[2022-01-27] MEDS: FERROUS SULFATE 325 MG TAB PO SCH ×2 (10:09→22:00)
[2022-01-27] MEDS: PRENATAL VIT27-FE FUMARATE-FOLIC ACID VIT TAB PO SCH (10:09)
[2022-01-27 14:16] LABS: Hematocrit 29.6 % (30.3-42.9); Hemoglobin 9.9 gm/dl (10.1-14.3)
[2022-01-27] MEDS: SENNOSIDES/DOCUSATE SODIUM 8.6/50 MG TAB PO SCH (22:00)
[2022-01-28] MEDS: IBUPROFEN 800 MG TAB PO SCH ×4 (00:30→18:08)
[2022-01-28] MEDS ORDERED: TETANUS,DIPH,PERTUSS(ACELL) VACCINE 0.5 ML SYRINGE IM ONE (06:00)
--- NOTE | 2022-01-28 07:38 | Discharge Summary ---
Providers - Providers Date of Admission: 01/24/22 15:40 Date of discharge: 01/28/22 Attending physician: ANNETTE VALLECILLO 01/27/22 03:22 Consult to Electric Welder Helper [CONS] Routine Reason For Exam: assistance with , SNS Primary care physician: ANNETTE VALLECILLO Hospitalization Reason for admission: induction of labor Delivery: Episiotomy: none Laceration: none Other procedures: none complications: none Discharge diagnosis: IUP at term delivered [place] baby: male Pertinent studies: Pt will be rooming in with after discharge. Baby is under the bili lights. Hospital course: S: Pt doing well. Ambulating, voiding, and passing flatus okay. O: VSS. H/H 9.9/29.6, asymptomatic anemia of delivery. Fundus firm, minimal bleeding noted. A: 41 y.o. s/p . P: Discharge home with instructions. Pt to schedule son's circumcision in the office in 1 week. Pt to schedule her visit in the office in 1 week. Condition at discharge: Good Disposition: 01 HOME / SELF CARE / HOMELESS - Discharge Diagnoses (1) Vaginal delivery Status: Acute Plan - Discharge Medications Prescriptions: Docusate Sodium [Colace] 100 mg PO BID PRN #60 capsule PRN Reason: Constipation Lidocain2.5%/Prilocai2.5% [Emla] 1 applic TP ONCE #1 tube Ibuprofen [Motrin] 800 mg PO Q8HR PRN #20 tablet PRN Reason: Pain, Moderate (4-6) - Provider Discharge Summary Activity: routine, no sex for 6 weeks, no heavy lifting 4 weeks, no strenuous exercise Diet: routine Instructions: routine Additional instructions: [] Smoking cessation referral if applicable(refer to patient education folder for contact #) [] Refer to [facility]'s [facility] Booklet Call your doctor immediately for: * Fever > 100.5 * Heavy vaginal bleeding ( >1 pad per hour) * Severe persistent headache * Shortness of breath * Reddened, hot, painful area to leg or breast - Follow up plan Follow up: ANNETTE VALLECILLO MD [Primary Care Provider] - 7 Days (- Congratulations on the of your baby boy! - Please schedule his circumcision appointment in the office in 1 week. - You have been given a prescription of EMLA cream for your son's circumcision. Do not use this cream at home, but bring it with you to your son's circumcision appointment. - Please schedule your visit in the office in 1 week. - Should you have any questions or concerns after discharge, please do not hesitate to call the office at [phone]. )
[2022-01-28] MEDS: PRENATAL VIT27-FE FUMARATE-FOLIC ACID VIT TAB PO SCH (10:21)
[2022-01-28] MEDS: FERROUS SULFATE 325 MG TAB PO SCH ×2 (10:21→21:50)
[2022-01-28] MEDS: DOCUSATE SODIUM 100 MG CAP PO SCH ×2 (10:21→21:50)
[2022-01-29] MEDS: IBUPROFEN 800 MG TAB PO SCH ×2 (00:09→06:41)
[2022-01-29 08:34] VITALS: BP 132/70
[2022-01-29] MEDS: PRENATAL VIT27-FE FUMARATE-FOLIC ACID VIT TAB PO SCH (09:07)
[2022-01-29] MEDS: DOCUSATE SODIUM 100 MG CAP PO SCH (09:07)
[2022-01-29] MEDS: FERROUS SULFATE 325 MG TAB PO SCH (09:07)
[2022-01-29] MEDS: SENNOSIDES/DOCUSATE SODIUM 8.6/50 MG TAB PO SCH (09:08)
== END 2022-01-29 10:10 | disposition home or self-care (01) | DRG 806 ==
LOC: TRG 15:15 → LD 15:16 → TRG 15:17 → UNDOADMIN 15:17 → LD 15:40 → OB 01-27 02:56
PROVIDERS: ADMIT Obstetrics & Gynecology; ATTEND Obstetrics & Gynecology
PROC: 10E0XZZ Delivery of Products of Conception, External Approach (ICD-10-PCS; principal; 2022-01-27)
PROC: 3E0P7VZ Introduction of Hormone into Female Reproductive, Via Natural or Artificial Opening (ICD-10-PCS; 2022-01-27)
PROC: 3E0234Z Introduction of Serum, Toxoid and Vaccine into Muscle, Percutaneous Approach (ICD-10-PCS; 2022-01-28)
DX: O76 Abnormality in fetal heart rate and rhythm complicating labor and delivery (principal); O98.32 Other infections with a predominantly sexual mode of transmission complicating childbirth; Z37.0 Single live birth; Z3A.39 39 weeks gestation of pregnancy; Z20.822 Contact with and (suspected) exposure to COVID-19; A60.00 Herpesviral infection of urogenital system, unspecified; O90.81 Anemia of the puerperium; Z23 Encounter for immunization; Z82.3 Family history of stroke; Z82.49 Family history of ischemic heart disease and other diseases of the circulatory system; Z80.3 Family history of malignant neoplasm of breast; Z80.8 Family history of malignant neoplasm of other organs or systems; Z91.018 Allergy to other foods
CPT/HCPCS: 36415; 59200; 85014; 85018; 85027; 86592; 86850; 86900; 86901; 88307; 99211; G0378; G0463; J2590; J3010; J7120; U0003